=== PATIENT | female | born 1980 | race Caucasian/White ===

== ENCOUNTER 2024-05-23 16:37 | Emergency (ER) | payer BC, SELFPAY ==
[2024-05-23 16:50] VITALS: BP 119/82; PULSE 83; RESP 18; TEMP 36.9; O2SAT 97; BMI 25.2
--- NOTE | 2024-05-23 16:51 | ED_ITS ---
HPI - General Adult General Chief complaint: Anxiety Stated complaint: Anxiety, heart palpitations Time Seen by Provider: 05/23/24 18:46 History of Present Illness ED Provider: Jd James MD HPI narrative: [age] female who reports underlying anxiety and ADHD not formally diagnosed no medications. She does not have a primary doctor she has been given an appointment for November for 1st PCP appointment. She is reporting and coming in mainly for worsening episodes of mid sleep waking with rapid palpitations and anxiety feeling that lasts 30 minutes to 3 hours. 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 She also drinks heavily especially during the winter season sometimes 6 beers a day but often times 1-2 beers per day. No other drug use Related Data Previous Rx's ?Medication ?Instructions ?Recorded hydroxyzine HCl 25 mg tablet 50 mg (2 x 25 mg) PO Q4H PRN 05/23/24 itching #14 tabs Allergies Allergy/AdvReac Type Severity Reaction Status Date / Time Penicillins [PCN] Allergy Anaphylaxis Verified 05/23/24 16:51 NSAIDS (Non-Steroidal AdvReac Gastrointestinal Verified 05/23/24 16:51 Anti-Inflamma Upset PMFSH Social History Social History Advance Directives: No Advance Directives Information Provided: No Physical Exam ED Vital Signs: Vital Signs - 24 hr 05/23/24 16:50 05/23/24 18:46 05/23/24 21:09 Temperature 98.5 F 98.8 F 98.7 F Pulse Rate 83 72 73 Respiratory Rate 18 16 16 Blood Pressure 119/82 119/61 112/70 Pulse Oximetry 97 99 97 Oxygen Delivery Method Room Air Room Air Room Air BMI result Body Mass Index 25.2 Const Other: EXAM: Gen: Alert, awake, well appearing, well hydrated. Head: Atraumatic Eyes: Anicteric, Normal conjunctiva. ENT: Moist mucosa, no pallor. ? Neck: Supple. Respiratory: Breathing comfortably, No distress.Clear to auscultation bilaterally, symmetric chest expansion, No wheeze, rales, ronchi. Cardiovascular: Regular rate and rhythm. No murmurs or rub. Well perfused periphery, warm extremities. No edema. ? Abdominal: Soft, no objective distension. No palpable masses or obvious organomegaly. No focal tenderness, no guarding, no rebound tenderness or other peritoneal findings. : No flank tenderness. Neuro: Alert. Gross movement of all extremities intact. ? Vital signs: See flowsheet Course Course Course Narrative: This is a Rapid Medical Examination (RME) performed by Fatemeh Vilchis PA-C in triage. Full HPI, ROS, assessment and treatment plan per primary provider in the Main ED. 05/23/24 1652 MARYLOU Connor Hx: 44 yo female hx of anxiety/ panic attacks, here for eval of sternal chest pressure/ palpitations. Reports episode 2 days ago where she was woken up from sleep with chest pressure, sweating. I attributed this to anxiety however this is continued over the last 2 days. She is not currently on anything for anxiety. Used to be on medication for this. admits to increased stressors. drinks 1-6 beers daily. PE/vitals: well-appearing Plan: labs, ekg Medications Administered Discontinued Medications Generic Name Dose Route Start Last Admin Trade Name Freq PRN Reason Stop Dose Admin Hydroxyzine HCl 50 mg 05/23/24 18:52 05/23/24 19:25 Hydroxyzine Hcl 50 Mg Tablet PO 05/23/24 18:53 50 mg ONCE ONE Administration Thiamine HCl 100 mg 05/23/24 18:52 05/23/24 19:25 Thiamine Hcl 100 Mg Tablet PO 05/23/24 18:53 100 mg ONCE ONE Administration Medical Decision Making Medical Decision Making [facility] Narrative: 44-year-old female with daily drinking, anxiety, with nighttime waking and palpitations that self-resolved. Awake alert oriented looks well. Reassuring lab work no thyroid disorder electrolyte derangement. Looks euvolemic. No drugs no withdrawal syndrome or acute drug toxidrome here. Reassuring ECG normal sinus rhythm no ischemic changes. Atarax thiamine counseled on sleep hygiene Lab Data 05/23/24 17:06 05/23/24 17:06 Labs: Lab Results 05/23/24 Range/Units 17:06 WBC 7.1 (4.8-10.8) X10*3/uL RBC 4.30 (4.20-5.50) X10*6/uL Hgb 13.2 (12.0-16.0) g/dl Hct 38.6 (37.0-47.0) % MCV 89.8 (80.0-98.0) fL MCH 30.7 (27.0-33.0) pg MCHC 34.2 (31.0-35.0) g/dl RDW 12.3 (11.0-16.0) % Plt Count 289 (160-400) X10*3/uL MPV 8.7 L (9.4-12.3) fL Immature Gran % (Auto) 0.3 (0.0-0.4) % Neut % (Auto) 75.3 H (45-73) % Lymph % (Auto) 14.9 L (20-40) % [place] % (Auto) 6.5 (2-11) % Eos % (Auto) 2.3 (0-4) % Baso % (Auto) 0.7 (0-2) % Lymph # (Auto) 1.1 L (1.2-4.9) X10*3/uL [place] # (Auto) 0.5 (0.1-1.2) X10*3/uL Eos # (Auto) 0.2 (0.0-0.4) X10*3/uL Baso # (Auto) 0.1 (0.0-0.2) X10*3/uL Abs Immat Gran (auto) 0.02 (0.00-0.03) X10*3/uL Absolute Neuts (auto) 5.4 (2.0-8.3) x10*3/uL Absolute Nucleated RBC 0.000 (0.0-0.012) X10*3/uL Nucleated RBC % (auto) 0.0 (0.0-0.2) /100WBC Sodium 139 (135-145) mmol/L Potassium 3.7 (3.3-5.1) mmol/L Chloride 105 (96-108) mmol/L Carbon Dioxide 27 (22-29) mmol/L Anion Gap 11 L (12-20) BUN 8 L (9-16) mg/dL Creatinine 0.77 (0.5-1.4) mg/dL Estim Creat Clear Calc 86.4 Estimated GFR > 60 Random Glucose 91 (60-115) mg/dL Calcium 9.0 (8.4-10.2) mg/dL Magnesium 2.0 (1.6-2.6) mg/dL Total Bilirubin 0.3 (0.0-1.0) mg/dL AST 20 (5-31) U/L ALT 21 (0-31) U/L Alkaline Phosphatase 63 (39-117) U/L Troponin I High Sens < 2.7 (<3.5-17.0) ng/L Total Protein 7.2 (6.5-8.0) g/dL Albumin 4.1 (3.5-5.0) g/dL TSH 2.15 (0.32-4.0) uIU/mL Ethyl Alcohol < 10 mg/dL Discharge Plan Discharge Clinical Impression: Acute anxiety, Panic disorder Patient Disposition: Home, Self-Care Instructions: Panic Disorder (ED), Anxiety (ED) Additional Instructions: _ DISCHARGE DIAGNOSES: Anxiety likely panic disorder HISTORY OF PRESENTATION: Anxiety poor sleep EMERGENCY DEPARTMENT COURSE,TESTS, TREATMENTS: While in the ED today lab work was reassuring DISCHARGE MEDICATIONS: ?As needed Atarax FOLLOW-UP: ?Call your primary or general physician soon as possible to discuss your symptoms, your ED visit and to discuss follow up plans Call to try to expedite your follow up with your PCP INSTRUCTIONS ?& RETURN PRECAUTIONS: If any symptoms change first call your primary physician, if it is after-hours your primary doctors office should have a provider department store salesperson you can speak with. If the symptoms are severe or very concerning to you then call 911 or return to the ED. Jd James MD Emergency Physician [facility] Prescriptions: New hydroxyzine HCl 25 mg tablet 50 mg PO Q4H PRN (Reason: itching) Qty: 14 0RF Interventions: ED Discharge Assessment Last Done: 05/23/24 21:09 Print Language: Irish
--- NOTE | 2024-05-23 16:53 | ECG_ITS ---
Test Reason : CHEST PRESSURE Blood Pressure : */* mmHG Vent. Rate : 72 BPM Atrial Rate : 72 BPM P-R Int : 158 ms QRS Dur : 72 ms QT Int : 376 ms P-R-T Axes : 13 35 45 degrees QTcB Int : 411 ms Normal sinus rhythm Low voltage QRS Borderline ECG No previous ECGs available Referred By: Roselyn Vilchis Electronically Signed By: JOSE BRADEN MD
[2024-05-23 17:13] LABS: Basophils Absolute Auto 0.1 X10*3/uL (0.0-0.2); Basophils Percent Auto 0.7 % (0-2); Eosinophils Absolute Auto 0.2 X10*3/uL (0.0-0.4); Eosinophils Percent Auto 2.3 % (0-4); Hematocrit 38.6 % (37.0-47.0); Hemoglobin 13.2 g/dl (12.0-16.0); Imm Gran Abs Auto 0.02 X10*3/uL (0.00-0.03); Imm Gran Pct Auto 0.3 % (0.0-0.4); Lymphocytes Absolute Auto 1.1 X10*3/uL (1.2-4.9); Lymphocytes Percent Auto 14.9 % (20-40); MANUAL DIFF FLAG NO; Mean Corpuscular HGB Conc 34.2 g/dl (31.0-35.0); Mean Corpuscular Hemoglobin 30.7 pg (27.0-33.0); Mean Corpuscular Volume 89.8 fL (80.0-98.0); Mean Platelet Volume 8.7 fL (9.4-12.3); Monocytes Absolute Auto 0.5 X10*3/uL (0.1-1.2); Monocytes Percent Auto 6.5 % (2-11); Neutrophils Absolute Auto 5.4 x10*3/uL (2.0-8.3); Neutrophils Percent Auto 75.3 % (45-73); Platelet Count 289 X10*3/uL (160-400); Red Cell Distribution Width 12.3 % (11.0-16.0); White Blood Count 7.1 X10*3/uL (4.8-10.8)
[2024-05-23 17:41] LABS: Troponin-I High Sensitivity < 2.7 ng/L (<3.5-17.0)
[2024-05-23 17:51] LABS: Alanine Aminotransferase 21 U/L (0-31); Albumin Level 4.1 g/dL (3.5-5.0); Anion Gap 11 (12-20); Aspartate Amino Transferase 20 U/L (5-31); Bilirubin Total 0.3 mg/dL (0.0-1.0); Blood Urea Nitrogen 8 mg/dL (9-16); Carbon Dioxide 27 mmol/L (22-29); Chloride 105 mmol/L (96-108); Creatinine Clr Calc Pharmacy 86.4; Estimated Glomerular Filt Rate > 60; Glucose Random 91 mg/dL (60-115); Potassium 3.7 mmol/L (3.3-5.1); Sodium 139 mmol/L (135-145); Total Protein 7.2 g/dL (6.5-8.0)
[2024-05-23 18:21] LABS: Ethanol < 10 mg/dL
[2024-05-23 18:41] LABS: Alkaline Phosphatase 63 U/L (39-117)
[2024-05-23 18:46] VITALS: BP 119/61; PULSE 72; RESP 16; TEMP 37.1; O2SAT 99
[2024-05-23] MEDS: Thiamine HCL 100 MG TABLET PO (19:25)
[2024-05-23] MEDS: hydrOXYzine HCL 50 MG TABLET PO (19:25)
[2024-05-23 20:20] LABS: TSH reflex Free T4 2.15 uIU/mL (0.32-4.0)
[2024-05-23 21:09] VITALS: BP 112/70; PULSE 73; RESP 16; TEMP 37.1; O2SAT 97
== END 2024-05-23 21:09 | disposition home or self-care (01) ==
PROVIDERS: Physician Assistant Medical; Emergency Provider Emergency Medicine
DX: F41.1 Generalized anxiety disorder (principal); F41.0 Panic disorder [episodic paroxysmal anxiety]; R00.2 Palpitations; R94.31 Abnormal electrocardiogram [ECG] [EKG]; Z51.81 Encounter for therapeutic drug level monitoring; Z79.899 Other long term (current) drug therapy
CPT/HCPCS: 36415; 80053; 80307; 83735; 84443; 84484; 85025; 93005; 99283; 99285

== ENCOUNTER → 2024-05-23 16:53 | Outpatient (BNV) | payer BC, SELFPAY | PROVIDERS: Emergency Provider Emergency Medicine; Visit Provider Internal Medicine Cardiovascular Disease | DX: R07.89 Other chest pain (principal) | CPT/HCPCS: 93010 ==

== ENCOUNTER 2024-08-03 15:17 | Emergency (ER) | payer BC, SELFPAY ==
--- NOTE | ~2024-08-03 | XR_ITS ---
CLINICAL HISTORY: PAIN Radiographs of the left shoulder, 4 views Comparison: None available Findings: No fracture or dislocation. Normal acromiohumeral interval. No degenerative change. Bone mineralization is normal. No soft tissue swelling. Impression: Normal study. This document has been electronically signed by: Melissa Montoya MD on 08/03/2024 16:42:47
--- NOTE | 2024-08-03 15:19 | ECG_ITS ---
Test Reason : cp Blood Pressure : */* mmHG Vent. Rate : 70 BPM Atrial Rate : 70 BPM P-R Int : 166 ms QRS Dur : 66 ms QT Int : 392 ms P-R-T Axes : 42 45 46 degrees QTcB Int : 423 ms Normal sinus rhythm Normal ECG When compared with ECG of 23-May-2024 17:01, No significant change was found Referred By: Roselyn Vilchis Electronically Signed By: JOSE BRADEN MD
[2024-08-03 15:23] VITALS: BP 142/66; PULSE 77; RESP 16; TEMP 36.5; O2SAT 97; BMI 25.8
--- NOTE | 2024-08-03 15:24 | ED.GENADULT ---
HPI - General Adult General Chief complaint: Extremity Injury, Upper Stated complaint: chest & shoulder & arm pain goes numb when sitting Time Seen by Provider: 08/03/24 18:18 Source: patient Limitations: no limitations History of Present Illness ED Provider: Milla Rodrigues PA-C HPI narrative: 44-year-old female presents with left shoulder pain x3 days. Patient states she has a discomfort over left upper chest, anterior left shoulder, upper back and left lateral neck. The pain radiates down the left upper extremity with paresthesias at times. Pain worse with movement and activity. Patient states she does perform a great deal of physical and repetitive activity at work. Related Data Previous Rx's ?Medication ?Instructions ?Recorded hydroxyzine HCl 25 mg tablet 50 mg (2 x 25 mg) PO Q4H PRN 05/23/24 itching #14 tabs methocarbamol 750 mg tablet 750 mg PO Q8H #15 tabs 08/03/24 methylprednisolone 4 mg tablets in 4 mg PO QAM #21 ea 08/03/24 a dose pack (Medrol (Igor)) Allergies Allergy/AdvReac Type Severity Reaction Status Date / Time Penicillins (PCN) Allergy Anaphylaxis Verified 08/03/24 15:25 NSAIDS (Non-Steroidal AdvReac Gastrointestinal Verified 08/03/24 15:25 Anti-Inflamma Upset Review of Systems Review of Systems: Yes all other systems are reviewed and are negative Constitutional: Constitutional: Denies fatigue, Denies fever(s) and Denies headache(s) ENT: Denies dizziness, Denies headache(s) and Reports neck pain Cardiovascular: Cardiovascular: Reports chest pain and Denies dyspnea Respiratory: Respiratory: Denies dyspnea Gastrointestinal: Gastrointestinal: Denies abdominal pain, Denies nausea and Denies vomiting Musculoskeletal: Musculoskeletal: Reports arthralgias, Denies joint swelling, Reports neck pain, Denies numbness, Reports radiating pain into limb and Reports tingling Neurologic: Denies dizziness, Denies headache(s), Denies numbness and Reports tingling Endocrine: Endocrine: Denies fatigue PMF Past Medical History Attestation statement: The following information was validated with the patient. Social History Social History Alcohol intake: current Alcohol intake frequency: a few times a week Alcohol type: beer Smoked in Last 30 Days: No Use of substances other than those prescribed or required for medical reasons: Yes Substance Use Type: Marijuana Advance Directives: No Advance Directives Information Provided: Yes Do you have a plan to hurt others: No Plan Patient : No Physical Exam ED Vital Signs: Vital Signs - 24 hr 08/03/24 15:23 08/03/24 18:00 Temperature 97.7 F 98.1 F Pulse Rate 77 80 Respiratory Rate 16 19 Blood Pressure 142/66 H 115/69 Pulse Oximetry 97 100 Oxygen Delivery Method Room Air Room Air BMI result Body Mass Index 25.8 Const Other: Alert well-appearing Orientation/consciousness: patient oriented x3 Chest Other: Some degree of tenderness over left anterior upper chest with palpation Resp Effort & Inspection: normal respiratory effort Cardio Other: Normal peripheral perfusion Skin Other: Warm dry no rash Neuro General: patient oriented x3, gait normal, no focal motor deficits and CN's II-XI intact bilaterally Extrem Other: Strength 5/5 bilateral upper extremities, pain elicited with movement of left upper extremity. Focal pain and bicipital groove on the left Psych Other: Cooperative Course Course Course Narrative: 08/03/24 1524 MARYLOU Connor This is a Rapid Medical Examination (RME) performed by Fatemeh Vilchis PA-C in triage. Full HPI, ROS, assessment and treatment plan per primary provider in the Main ED. Hx: 44 yo F here w/ L shoulder pain, now radiating to chest. worse w/ sitting down which induces muscle spasms . reports getting a massage a few days ago. no neck manipulations. no trauma/falls. Plan: labs, ekg, shoulder xr Medical Decision Making Medical Decision Making MDM Narrative: 44-year-old female presents with left shoulder pain x3 days. Patient states she has a discomfort over left upper chest, anterior left shoulder, upper back and left lateral neck. The pain radiates down the left upper extremity with paresthesias at times. Pain worse with movement and activity. Patient states she does perform a great deal of physical and repetitive activity at work. No relevant chronic issues History: Per patient I have considered the following differential diagnoses: Cervical radiculopathy, VAD, ACS, dissection, musculoskeletal strain Plan: ACS was considered, the patient does have some chest wall pain, she has no known risk factors for coronary artery disease, her heart score is 0, screening labs including cardiac enzymes EKG were obtained. The patient is actually having cervical radiculopathy, she can not have NSAIDs, we will treat with a steroid taper and muscle relaxant. Thought about VAD, the patient does perform a great deal of physical activity, however there was no heavy lifting event that preceded her discomfort, she is also neurologically intact, does not have a headache or visual changes. Thought about dissection given both chest and back pain, however she is not overtly hypertensive, she is neurovascularly intact. I have independently reviewed the following tests: Labs: No leukocytosis, not anemic, not , troponin is negative EKG: Normal sinus rhythm, rate of 70, no ischemic changes no ectopy X-ray left shoulder:Findings: No fracture or dislocation. Normal acromiohumeral interval. No degenerative change. Bone mineralization is normal. No soft tissue swelling. Impression: Normal study. Lab Data 08/03/24 15:33 08/03/24 15:33 Labs: Lab Results 08/03/24 Range/Units 15:33 WBC 5.6 (4.8-10.8) X10*3/uL RBC 4.06 L (4.20-5.50) X10*6/uL Hgb 12.6 (12.0-16.0) g/dl Hct 36.2 L (37.0-47.0) % MCV 89.2 (80.0-98.0) fL MCH 31.0 (27.0-33.0) pg MCHC 34.8 (31.0-35.0) g/dl RDW 12.7 (11.0-16.0) % Plt Count 270 (160-400) X10*3/uL MPV 8.8 L (9.4-12.3) fL Immature Gran % (Auto) 0.2 (0.0-0.4) % Neut % (Auto) 66.3 (45-73) % Lymph % (Auto) 23.6 (20-40) % [place] % (Auto) 7.4 (2-11) % Eos % (Auto) 1.6 (0-4) % Baso % (Auto) 0.9 (0-2) % Lymph # (Auto) 1.3 (1.2-4.9) X10*3/uL [place] # (Auto) 0.4 (0.1-1.2) X10*3/uL Eos # (Auto) 0.1 (0.0-0.4) X10*3/uL Baso # (Auto) 0.1 (0.0-0.2) X10*3/uL Abs Immat Gran (auto) 0.01 (0.00-0.03) X10*3/uL Absolute Neuts (auto) 3.7 (2.0-8.3) x10*3/uL Absolute Nucleated RBC 0.000 (0.0-0.012) X10*3/uL Nucleated RBC % (auto) 0.0 (0.0-0.2) /100WBC Sodium 138 (135-145) mmol/L Potassium 3.9 (3.3-5.1) mmol/L Chloride 108 (96-108) mmol/L Carbon Dioxide 22 (22-29) mmol/L Anion Gap 12 (12-20) BUN 13 (9-16) mg/dL Creatinine 0.86 (0.5-1.4) mg/dL Estim Creat Clear Calc 84.2 Estimated GFR > 60 Random Glucose 93 (60-115) mg/dL Calcium 8.3 L D (8.4-10.2) mg/dL Magnesium 2.1 (1.6-2.6) mg/dL Total Bilirubin 0.4 (0.0-1.0) mg/dL AST 21 (5-31) U/L ALT 21 (0-31) U/L Alkaline Phosphatase 59 (39-117) U/L Troponin I High Sens < 2.7 (<3.5-17.0) ng/L Total Protein 6.9 (6.5-8.0) g/dL Albumin 4.2 (3.5-5.0) g/dL Discharge Plan Discharge Clinical Impression: Left cervical radiculopathy Patient Disposition: Home, Self-Care Instructions: Cervical Radiculopathy (ED) Additional Instructions: All of your screening labs including a cardiac enzymes were normal, there were no concerning changes on your EKG, the x-ray of the left shoulder was negative. You are being treated for inflammation of 1 of the nerve roots in the neck that is causing pain in the arm. See home care instructions. Take the Medrol Dosepak as directed, this is an anti-inflammatory, take it with food in the morning. Use the methocarbamol as needed for further pain, this is a muscle relaxant. This medication will cause drowsiness do not drive or operate machinery while taking the medication. I am providing with a contact for our orthopedic service if your symptoms continue. You can call to make an appointment. Follow up with primary care as needed. Prescriptions: New methocarbamol 750 mg tablet 750 mg PO Q8H Qty: 15 0RF methylprednisolone [Medrol (Igor)] 4 mg tablets,dose pack 4 mg PO QAM Qty: 21 0RF Rx Instructions: Take per package instruction No Action hydroxyzine HCl 25 mg tablet 50 mg PO Q4H PRN (Reason: itching) Qty: 14 0RF Referrals: Edwin Borrero MD [Physician, Orthopedics] Clinical Impression: Left cervical radiculopathy Stand Alone Forms: Work/School Release Print Language: St Helenian
[2024-08-03 15:37] LABS: MANUAL DIFF FLAG NO
[2024-08-03 15:40] LABS: Basophils Absolute Auto 0.1 X10*3/uL (0.0-0.2); Basophils Percent Auto 0.9 % (0-2); Eosinophils Absolute Auto 0.1 X10*3/uL (0.0-0.4); Eosinophils Percent Auto 1.6 % (0-4); Hematocrit 36.2 % (37.0-47.0); Hemoglobin 12.6 g/dl (12.0-16.0); Imm Gran Abs Auto 0.01 X10*3/uL (0.00-0.03); Imm Gran Pct Auto 0.2 % (0.0-0.4); Lymphocytes Absolute Auto 1.3 X10*3/uL (1.2-4.9); Lymphocytes Percent Auto 23.6 % (20-40); Mean Corpuscular HGB Conc 34.8 g/dl (31.0-35.0); Mean Corpuscular Volume 89.2 fL (80.0-98.0); Mean Platelet Volume 8.8 fL (9.4-12.3); Monocytes Absolute Auto 0.4 X10*3/uL (0.1-1.2); Monocytes Percent Auto 7.4 % (2-11); Neutrophils Absolute Auto 3.7 x10*3/uL (2.0-8.3); Neutrophils Percent Auto 66.3 % (45-73); Platelet Count 270 X10*3/uL (160-400); Red Blood Count 4.06 X10*6/uL (4.20-5.50); Red Cell Distribution Width 12.7 % (11.0-16.0); White Blood Count 5.6 X10*3/uL (4.8-10.8)
[2024-08-03 16:03] LABS: Alanine Aminotransferase 21 U/L (0-31); Albumin Level 4.2 g/dL (3.5-5.0); Alkaline Phosphatase 59 U/L (39-117); Anion Gap 12 (12-20); Aspartate Amino Transferase 21 U/L (5-31); Bilirubin Total 0.4 mg/dL (0.0-1.0); Blood Urea Nitrogen 13 mg/dL (9-16); Calcium 8.3 mg/dL (8.4-10.2); Carbon Dioxide 22 mmol/L (22-29); Chloride 108 mmol/L (96-108); Creatinine Clr Calc Pharmacy 84.2; Estimated Glomerular Filt Rate > 60; Glucose Random 93 mg/dL (60-115); Magnesium 2.1 mg/dL (1.6-2.6); Potassium 3.9 mmol/L (3.3-5.1); Sodium 138 mmol/L (135-145); Total Protein 6.9 g/dL (6.5-8.0)
[2024-08-03 16:10] LABS: Troponin-I High Sensitivity < 2.7 ng/L (<3.5-17.0)
[2024-08-03 18:00] VITALS: BP 115/69; PULSE 80; RESP 19; TEMP 36.7; O2SAT 100
[2024-08-03 20:38] VITALS: BP 117/79; PULSE 85; RESP 16; TEMP 36.7; O2SAT 100
== END 2024-08-03 20:40 | disposition home or self-care (01) ==
PROVIDERS: Physician Assistant Medical; Emergency Provider Emergency Medicine
DX: M54.12 Radiculopathy, cervical region (principal); R07.9 Chest pain, unspecified; M54.2 Cervicalgia; M25.512 Pain in left shoulder
CPT/HCPCS: 36415; 73030; 80053; 83735; 84484; 85025; 93005; 99283; 99284

== ENCOUNTER → 2024-08-03 15:19 | Outpatient (BNV) | payer BC, SELFPAY | PROVIDERS: Emergency Provider Emergency Medicine; Visit Provider Internal Medicine Cardiovascular Disease | DX: R07.9 Chest pain, unspecified (principal) | CPT/HCPCS: 93010 ==

== ENCOUNTER → 2024-08-03 15:25 | Outpatient (BNV) | payer BC, SELFPAY | PROVIDERS: Visit Provider Radiology Diagnostic Radiology | DX: M25.512 Pain in left shoulder (principal) | CPT/HCPCS: 73030 ==

== ENCOUNTER 2024-08-11 08:05 | Outpatient (AMB) | payer OTHER, SELFPAY ==
[2024-08-11 08:07] VITALS: BP 106/82; PULSE 75; TEMP 36.5; O2SAT 99; BMI 25.5
--- NOTE | 2024-08-11 08:07 | AM.OFFWIN_ITS ---
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 Reports Pain radiates to the left Shoulder and feeling numbness to the fingers. Denies injury or trauma to the neck. 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 This is claim - patient does not have a PCP, waiting for an appointment in December. [facility] Medical History (Updated 08/11/24 @ 08:31 by Angeline Dang NP) Cervicalgia Social History Alcohol intake: current Alcohol intake frequency: a few times a week Alcohol type: beer Substance Use Type: Marijuana Review of Systems Const All systems reviewed & are unremarkable except as noted in HPI and below Physical Exam Vital Signs: Last Vital Signs Temp 97.7 F 08/11/24 08:07 Pulse 75 08/11/24 08:07 BP 106/82 08/11/24 08:07 Pulse Ox 99 08/11/24 08:07 Oxygen Delivery Method Room Air 08/11/24 08:07 BMI result Body Mass Index 25.5 Const General: no acute distress; No comfortable Orientation/consciousness: patient oriented x3 Neck Other: Limited ROM due to pain Neck: Yes no lymphadenopathy and Yes trachea midline Back/Spine/Pelvis Back: back tenderness Cervical Spine: pain with cervical ROM, cervical spasm and Cervical spine tenderness Neuro General: patient oriented x3, gait normal and moves all extremities Motor exam (neuro): 5/5 motor strength present throughout Extrem Left upper extremity: shoulder/upper arm Details: tenderness Location: of the scapula and over the deltoid bursa and abnormal ROM Details: pain with active ROM and pain with passive ROM; no crepitus Assessment & Plan Assessment & Plan (1) Cervicalgia: Code(s): M54.2 - Cervicalgia Plan: Ordered Neck Xrays Refilled Muscle relaxants for few additional days. ice/Hot NSAIDs and Acetaminophen Rest, gave work note for 3 days. Ordered PT Orders: Orders PT Evaluation and Treatment Today M54.2 - Cervicalgia XR cervical spine 3V Today M54.2 - Cervicalgia Medications: Changed From methocarbamol 750 mg PO .twice M54.2 - Cervicalgia To methocarbamol 750 mg PO BID 20 tabs 0RF 10 days M54.2 - Cervicalgia Discontinued hydroxyzine HCl Discontinued Reason: Patient Completed Course 50 mg (2 x 25 mg) PO Q4H PRN 14 tabs 0RF itching Coding Level of Care Code New Pt Level 4 (47136) Diagnoses Cervicalgia M54.2 Time Spent (min) 20
--- OUTSIDE RECORDS SUMMARY | 2024-08-11 08:08 | XMS_ITS | Data Portability ---
Author Organization [email or web address] [id number] Address [address] [place] [address] Assessment No assessment recorded. Plan of Treatment Reminders Order Date Submit Date Provider Last Modified By Organization Details Last Modified Time Details Appointments None record ed. Lab None record ed. Referral None record ed. Procedures None record ed. Surgeries None record ed. Imaging None record ed. Medication Orders None record ed. Patient TargetsNo targets recorded. Patient Instructions Encounter Date Encounter Id Patient Instructions Last Modified By Organization Details Last Modified Time 03/23/2022 [id number] This physical does not replace the annual physical to be performed by your PCP. There may be additional screening tests that they will perform that we do not in the urgent care setting. Failure to follow up as recommended may result in significant adverse health consequences. If your symptoms worsen or you develop new symptoms that concern you, go to the emergency department for further evaluation. [email or web address] Not available 03/23/2022 14:32:49 Reason for Referral None Reported. Problems No Known Problems Procedures Surgical History Date Name Laterality Status Provider Name and Address Organization Details Recorded Time 03/23/19 23 OC - Venipuncture Template completed CAROLYN RICHTER PA - [facility] 03/23/2022 13:10:43 03/23/19 23 OC- Physical completed Verical PA - [facility] 03/23/2022 13:10:34 Imaging Results None recorded. Procedure Notes None recorded. Medical Equipment None Reported. Vitals None Recorded Social History None recorded. Functional Status None recorded. Mental Status None recorded. Family History Nothing Reported. Medical History No medical history recorded. Gynecological HistoryNo gynecological history recorded. Obstetrics History GPAL:G 0 P 0 0 0 0 Past Encounters Encounter ID Performer Location Encounter Start Date Encounter Closed Date Diagnosis/Indication Diagnosis SNOMED-CT Code Diagnosis ICD10 Code Diagnosis [place] [id number] [place] [id number] [address] 03/23/2022 12:07:06 03/23/2022 14:36:58 History and physical examination, occupation 034928387 Z02.1 History an d physical examination, pre-employment [id number] Z02.1 Health Concerns Section Related Observation LastModified by Organization Detai ls LastModified Time None Recorded Concern Status LastModified by Organization Details LastModified Time None Recorded Advance Directives Directive None Recorded Payers Insurance Date Sequence Insurance Name Policy Number Policy Gracia Covered Member ID Gracia Member ID Guarantor Name 03/23/2022 OC-ESCREEN Jania Sullivan [id number] Jania Sullivan Notes Date Note Type Note Provider Name a nd Address Organization Details Recorded Time 03/23/2022 text/html physical Zana Stewart NP [address] [place], [address], [place] - [facility] 03/23/2022 14:39:55 OBGyn Episode No OBEpisode recorded.
--- OUTSIDE RECORDS SUMMARY | 2024-08-11 08:08 | XMS_ITS | Clinical Summary ---
Author Organization [address] Address [address] [place], [place] Phone Care Team Providers Care Manager Technical Support Name Role Phone Darin Bolivar MD Primary Care Provider Social History Tobacco Use Types Packs/Day Years Used Date Smoking Tobacco: Never Assessed Comments Unknown Sex and Gender Information Value Date Recorded Sex Assigned at Not on file Legal Sex Female 1:48 PM EDT Gender Identity Not on file Sexual Orientation Not on file Plan of Treatment Upcoming Encounters Date Type Department Care Team (Late st Contact Info) Description 12/18/2024 11:30 AM EST Office Visit Adult Medicine [address] [phone] Verena Morales PA [address] [place] [address] Health Maintenance Due Date Last Done Comments Breast Cancer Screening 1979 DTaP,Tdap,and Td Vaccines (1 - Tdap) 1998 Hepatitis B Vaccines (1 of 3 - 19+ 3-dose series) 1998 Cervical Cancer Screening: P ap Smear 2000 COVID-19 Vaccine (2023-2 5 season) 2023 Colorectal Cancer Screening: Colonoscopy 08/06/2024 Depression Screening 08/06/2024 HIV Screening 08/06/2024 Hepatitis C Screening 08/06/2024 Social Influencers of Health Screening 08/06/2024 Influenza Vaccine (#1) 2024 HIB Vaccines Aged Out No longer eligi ble based on patient's age to complete this topic HPV Vaccines Aged Out No longer eligi ble based on patient's age to complete this topic Hepatitis A Vaccines Aged Out No long er eligible based on patient's age to complete this topic IPV Vaccines Aged Out No longer eligi ble based on patient's age to complete this topic MMR Vaccines Aged Out No longer eligi ble based on patient's age to complete this topic Meningococcal ACWY Vaccine Aged Out N o longer eligible based on patient's age to complete this topic Meningococcal B Vaccine Aged Out No l onger eligible based on patient's age to complete this topic Pneumococcal Vaccine: Pediat rics (0 to 5 Years) and At-Risk Patients (6 to 64 Years) Aged Out No longer eligible b ased on patient's age to complete this topic RSV Immunization Patients Un deshaun 20 months Aged Out No longer eligible b ased on patient's age to complete this topic Varicella Vaccines Aged Out No longer eligible based on patient's age to complete this topic Insurance [address] [address] [place] [address] Care Teams Manager Technical Support Relationship Specialty Start Date End Date Darin Bolivar MD [address] [place] [address] PCP - General Internal Medicine 08/05/24
== END 2024-08-11 09:05 | disposition home or self-care (01) ==
PROVIDERS: Visit Provider Nurse Practitioner Family
DX: M54.2 Cervicalgia (principal)

== ENCOUNTER 2024-08-11 08:05 | Outpatient (REF) | payer OTHER, BC, SELFPAY ==
--- NOTE | ~2024-08-11 | XR_ITS ---
EXAMINATION: XR CERVICAL SPINE CLINICAL INFORMATION: M54.2 - Cervicalgia. Left-sided neck pain for 10 days COMPARISON: None available. TECHNIQUE: 2 views of the cervical spine were obtained. FINDINGS: There is mild straightening of cervical lordosis. The vertebral heights, alignment and disc heights are normal. No visible acute fracture, dislocation or subluxation seen. There is mild posterior spondylosis at the C5-6 disc level. No lytic or sclerotic process seen. The craniovertebral junction and the C1-C2 alignment is normal. The prevertebral and paravertebral soft tissues are normal. XR/XR cervical spine 2V IMPRESSION: Straightening of cervical lordosis spasm versus positional. There is posterior C5-6 cervical spondylosis. Electronically signed by: Nakul Anderson MD 08/11/2024 09:59 AM EDT
== END 2024-08-11 08:06 | disposition home or self-care (01) ==
LOC: HO.HMGCX 08:05
PROVIDERS: Visit Provider Nurse Practitioner Family
DX: M54.2 Cervicalgia (principal); M25.512 Pain in left shoulder; R20.2 Paresthesia of skin
CPT/HCPCS: 72040; 99202

== ENCOUNTER → 2024-08-11 09:33 | Outpatient (BNV) | payer OTHER, SELFPAY | PROVIDERS: Visit Provider Radiology Diagnostic Radiology | DX: M47.812 Spondylosis without myelopathy or radiculopathy, cervical region (principal) | CPT/HCPCS: 72040 ==

== ENCOUNTER 2024-11-28 08:18 | Outpatient (AMB) | payer OTHER, SELFPAY ==
[2024-11-28 08:28] VITALS: BMI 27.4
--- NOTE | 2024-11-28 08:28 | MHC.OFFVIS ---
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 Patient was seen and referred by [facility] 08/03/24. Patient reports she was overworked . She reports she took on the job of a few co-workers who were out of work for a few days and woke up suddenly with pain in her neck and left shoulder that she described as tightness and muscles spasms. She says she continued to work over the weekend due to her filling in for co-workers despite her shoulder feeling frozen and tight. Reports she had numbness and tingling that has resolved in the LUE. She is resting, icing, and heating to maintain her symptoms. Since this injury she says she has developed blurry vision and headaches. Most days she is having pain in her neck that radiates into her shoulder making them feel heavy. Patient trying to maintain her symptoms with pregablin, acetaminophen, Excedrin, and baclofen with mild relief. She says ED thought it may have been a heart attack because of the LUE symptoms. Allergies Penicillins (PCN) Allergy (Verified 11/28/24 08:30) Anaphylaxis gabapentin Adverse Reaction (Severe, Verified 11/28/24 08:30) Unknown NSAIDS (Non-Steroidal Anti-Inflamma Adverse Reaction (Verified 11/28/24 08:31) Gastrointestinal Upset Medication List - Last Reconciled 11/28/24 by Sissy Campo MD acetaminophen 1,000 mg PO Q6H PRN lcpptof-ucvunetzclfsa-pgudkdyj 250-250-65 mg (Excedrin Extra Strength) 2 tabs PO Q6H PRN baclofen 10 mg PO TID pregabalin 25 mg PO BID HPI Comments Details: Reviewed notes from ER 08/03. Presented with more left sided shoulder/neck pain. Essentially ruled out for acute cardiac. X-ray of left shoulder was normal. Prescribed but Medrol Dosepak. Patient presented to walk-in clinic 08/11, reported worker's comp case. 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 Points to posterior neck pain, midline. Last time she had numbness/tingling was 2 days ago to her hands, bilateral, mainly 4th and 5th digits. Right shoulder hurts mostly at night, depending on her sleeping positiong. Left shoulder is improved from onset. Still having blurry vision, which she was reinjured (after went back to work 10/21 but woke up 11/01 with more pain, but more on right side). Still having headaches, frontal, temporal, with feeling of numbness on temporal area. PT finished 10/27. Off work until 02/03/25. 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 Patient was appropriately conversant and oriented. Good historian. MSK: Inspection reveals appropriate head and neck positioning. Tender mildly upper trapezius, cervical paraspinals. Cervical ROM was full. Spurling's sign negative. Bilateral shoulder, elbow and wrist ROM WNL. No ligamentous laxity or crepitance. No increased effusion. No specific abnormalities or instability found on inspection and palpation of the spine and extremities. Strength is 5/5 in all muscle groups tested. No increased tone noted. Neurological: Neurologic examination of the upper and lower extremities was nonfocal with intact sensation, muscle stretch reflexes and without focal motor deficits . Castro?s negative bilaterally. Babinski was down going bilaterally. Clonus was negative. Gait is non-antalgic without loss of balance. Vital Signs: BMI result Body Mass Index 27.4 Results Reviewed Results Reviewed: Reviewed xray cspine with patient - loss of lordosis, but disc spaces preserved. Ordering Physician: Angeline Dang NP Date of Service: 08/11/24 Procedure(s): XR cervical spine 2V Accession Number(s): [id number] cc: Angeline Dang NP; Physician,None ~ EXAMINATION: XR CERVICAL SPINE CLINICAL INFORMATION: M54.2 - Cervicalgia. Left-sided neck pain for 10 days COMPARISON: None available. TECHNIQUE: 2 views of the cervical spine were obtained. FINDINGS: There is mild straightening of cervical lordosis. The vertebral heights, alignment and disc heights are normal. No visible acute fracture, dislocation or subluxation seen. There is mild posterior spondylosis at the C5-6 disc level. No lytic or sclerotic process seen. The craniovertebral junction and the C1-C2 alignment is normal. The prevertebral and paravertebral soft tissues are normal. XR/XR cervical spine 2V IMPRESSION: Straightening of cervical lordosis spasm versus positional. There is posterior C5-6 cervical spondylosis. Electronically signed by: Nakul Anderson MD 08/11/2024 09:59 AM EDT RP Ordering Physician: Roselyn Vilchis Date of Service: 08/03/24 Procedure(s): XR shoulder LT min 2V Accession Number(s): [id number] cc: Physician,None ; Roselyn Vilchis~ CLINICAL HISTORY: PAIN Radiographs of the left shoulder, 4 views Comparison: None available Findings: No fracture or dislocation. Normal acromiohumeral interval. No degenerative change. Bone mineralization is normal. No soft tissue swelling. Impression: Normal study. This document has been electronically signed by: Melissa Montoya MD on 08/03/2024 16:42:47 I reviewed records from the following: ER, walk-in clinic Assessment & Plan Assessment & Plan (1) Cervicalgia: Code(s): M54.2 - Cervicalgia Category: Medical (2) Myofascial pain: Code(s): M79.18 - Myalgia, other site Category: Medical (3) Numbness in both hands: Code(s): R20.0 - Anesthesia of skin Category: Medical (4) Right shoulder pain: Code(s): M25.511 - Pain in right shoulder Category: Medical Qualifiers: Chronicity: acute Qualified Code(s): M25.511 - Pain in right shoulder Plan Suspect neck and shoulder pain is from myofascial pain, particularly upper trapezius. No signs of radiculopathy or myelopathy. No signs of RTC injury. Shoulder pain is also from upper trapezius. On/off numbness on 4th-5th digits could be positional, affecting ulnar. 1. Trial trigger point injections, to be scheduled 2. EMG to rule out ulnar neuropathy 3. Right shoulder xray Assessment and plan discussed with patient, and patient was agreeable. All questions were answered thoroughly. Sissy Campo MD, HEATHER Board Certified, [place] Board [employer] Medicine and Rehabilitation (ABPMR) Board Certified, [place] Board of Electrodiagnostic Medicine (ABEM) Orders: Orders NE electromyogram (EMG) Today R20.0 - Anesthesia of skin NE nerve conduction velocity Today R20.0 - Anesthesia of skin XR shoulder RT min 2V Today M25.511 - Pain in right shoulder Coding Level of Care Code New Pt Level 4 (21559) Diagnoses Cervicalgia M54.2 Myofascial pain M79.18 Numbness in both hands R20.0 Acute pain of right shoulder M25.511 Chronicity: acute
--- OUTSIDE RECORDS SUMMARY | 2024-11-28 08:35 | XMS_ITS | Clinical Summary ---
Author Organization [facility] [address] [place] [address] Address [address] [facility] [place] [address] Phone Care Team Providers Care Scrubber Operator Name Role Phone Darin Bolivar MD Primary Care Provider Allergies Active Allergy Reactions Criticality Noted Date Comments Gabapentin Anxiety,Irritable,Pa lpita tions,Sweating 08/14/2024 Nsaids (Non-Steroidal Anti-Inflammatory Drug) Angioedema,Nausea And Vomiting,Other,Pain,Palpi tations,Shortness of breath High 08/14/2024 Penicillins Anaphylaxis,Hives,Itching High 5 Medications magnesium-rhuba rb-ashwagandha (Estroven-Ashwa gandha) 50-4-125 mg tablet 5 Active baclofen (LIORESAL) 10 mg tablet Take 1 tablet (10 mg total) by mouth 3 (three) times a day. 270 each 1 5 Active pregabalin (LYRICA) 25 mg capsule Take 1 capsule (25 mg total) by mouth 2 (two) times a day. Max Daily Amount: 50 mg 60 capsule 5 5 05/20/19 26 Active sertraline (ZOLOFT) 50 mg tablet 0.5 tablets (25 mg total). 09/04/11/05/19 25 Discontinu ed(Patient Discharge) pregabalin (LYRICA) 25 mg capsule Take 1 capsule (25 mg total) by mouth 1 (one) time each day. 11/05/19 25 Discontinu ed(Reorder ) pregabalin (LYRICA) 25 mg capsule Take 1 capsule (25 mg total) by mouth 1 (one) time each day. Max Daily Amount: 25 mg 90 capsule 1 11/21/19 25 Discontinu ed(Dose adjustment ) Active Problems Problem Noted Date Diagnosed Date Cervical radiculopathy 08/14/2024 Encounters Date Type Department Care Team Description 11/20/2024 11:00 AM EDT Office Visit Adult [address] [phone] Verena Morales PA Work related injury (Primary Dx); Cervical radiculopathy 11/04/2024 9:45 AM EDT Office Visit Adult [address] [phone] Darin Bolivar MD Cervical radiculopathy (Primary Dx) 10/27/2024 2:30 PM EDT Treatment Outpatient Rehabilitation [address] [phone] Ubaldo Jasmine, PELON Cervical radiculopathy (Primary Dx) 10/22/2024 11:30 AM EDT Treatment Outpatient [address] [phone] Beulah Sim, ADELITA Cervical radiculopathy (Primary Dx) 10/20/2024 12:30 PM EDT Treatment Outpatient [address] [phone] Beulah Sim, ADELITA Cervical radiculopathy (Primary Dx) 10/15/2024 11:30 AM EDT Treatment Outpatient [address] [phone] Beulah Sim, ADELITA Cervical radiculopathy (Primary Dx) 10/14/2024 10:00 AM EDT Office Visit [address] [phone] Verena Morales PA Cervical radiculopathy (Primary Dx) 10/10/2024 1:00 PM EDT Treatment Outpatient [address] [phone] Ubaldo Jasmine, PT Cervical radiculopathy (Primary Dx) 10/08/2024 1:30 PM EDT Treatment Outpatient [address] [phone] Rena Becerra, BIAS BINDING FOLDER Cervical radiculopathy (Primary Dx) 10/01/2024 11:00 AM EDT Treatment Outpatient [address] [phone] Beulah Sim, BIAS BINDING FOLDER Cervical radiculopathy (Primary Dx) 09/29/2024 10:30 AM EDT Treatment Outpatient [address] [phone] Beulah Sim, BIAS BINDING FOLDER Cervical radiculopathy (Primary Dx) 09/26/2024 10:00 AM EDT Treatment Outpatient [address] [phone] Everette Whitley, BIAS BINDING FOLDER Cervical radiculopathy (Primary Dx) 09/23/2024 10:00 AM EDT Treatment Outpatient [address] [phone] Ubaldo Jasmine, PT Cervical radiculopathy (Primary Dx) 09/22/2024 11:15 AM EDT Office Visit [address] [phone] Darin Bolivar MD Cervical radiculopathy (Primary Dx) 09/18/2024 2:30 PM EDT Treatment Outpatient Rehabilitation - [address] [phone] Beulah Sim, BIAS BINDING FOLDER Cervical radiculopathy (Primary Dx) 09/10/2024 12:30 PM EDT Evaluation Outpatient Rehabilitation [address] [phone] Ubaldo Jasmine, PT Cervical radiculopathy (Primary Dx) 08/29/2024 Telephone Adult Medicine [facility] - [address] [phone] Darin Bolivar MD from Last 3 Months Social History Tobacco Use Types Packs/Day Years Used Date Smoking Tobacco: Former Cigarettes Passive Smoke Exposure: Never Smokeless Tobacco: Never Tobacco Cessation:Counseling Given: Not Answered Housing Instability Answer Date Recorde d Are you worried that in the next 2 months you may not have stable housing? No 08/13/2024 Food Access & Nutrition Answer Date Rec orded Do you have access to a vari ety of food including fruits and vegetables? Yes 08/13/2024 Access to Healthcare Answer Date Record ed Within the last 3 months, ho w many times did you visit the emergency department for your medical care? 2 08/13/2024 Health Literacy Answer Date Recorded How often do you need to hav e someone help you when you read instructions, pamphlets, or other written material from your doctor or pharmacy? Never 08/13/2024 Caregiver: How often do you need to have someone help you when you read instructions, pamphlets, or other written material from your doctor or pharmacy? Not on file 08/13/2024 Financial Risk Answer Date Recorded How hard is it for you to pa y for the very basics like food, housing, medical care, and air conditioning / heating? Not very hard 08/13/2024 Transportation Answer Date Recorded Has the lack of transportati on kept you from meetings, work, or from getting things needed for daily living? Yes Has the lack of transportati on kept you from medical appointments or from getting medications? No 08/13/2024 Social Isolation Answer Date Recorded How often do you feel lonely or isolated from those around you? Sometimes 08/13/2024 Food Risk Answer Date Recorded Within the past 12 months we worried whether our food would run out before we got money to buy more. Never true 08/13/2024 Within the past 12 months th e food we bought just didn't last and we didn't have money to get more. Never true 08/13/2024 Dependent Care Answer Date Recorded Do you need help finding or paying for care for your loved ones. For example, early childhood coordinator or elderly care for an older adult? No 08/13/2024 Education Answer Date Recorded Do you think completing more education or training, like finishing a GED, going to college, or learning a trade, would be helpful for you? N/A 08/13/2024 Employment and Income Answer Date Recor ded During the last four weeks, have you been actively looking for work? No 08/13/2024 Living Situation Answer Date Recorded What is your living situation? Unrecognized valu e 08/13/2024 Comments No Sex and Gender Information Value Date Recorded Sex Assigned at Female 08/13/2024 2:47 PM EDT Legal Sex Female 1:48 PM EDT Gender Identity Female 08/13/2024 2:47 PM EDT Sexual Orientation Straight 08/13/2024 2: 47 PM EDT Obstetrics History Last Filed Vital Signs Vital Sign Reading Time Taken Comments Blood Pressure 104/70 11/20/2024 10:52 AM EDT Pulse 82 11/20/2024 10:52 AM EDT Temperature 36.8 C (98.3 F) 11/20/2024 10:52 AM EDT Respiratory Rate 14 11/20/2024 10:52 AM EDT Oxygen Saturation 97% 11/20/2024 10:52 AM EDT Inhaled Oxygen Concentration - - Weight 77.1 kg (170 lb) 11/20/2024 10:52 AM EDT Height 167.6 cm (5' 6 ) 11/20/2024 10:52 AM EDT Body Mass Index 27.44 11/20/2024 10:52 AM EDT Plan of Treatment Upcoming Encounters Date Type Department Care Team (Late st Contact Info) Description 12/18/2024 11:30 AM EST Office Visit Adult Medicine [address] [phone] Verena Morales PA [address] [place] [address] Health Maintenance Due Date Last Done Comments Breast Cancer Screening 1979 Colorectal Cancer Screening: Colonoscopy 1979 DTaP,Tdap,and Td Vaccines (1 - Tdap) 1998 Hepatitis B Vaccines (1 of 3 - 19+ 3-dose series) 1998 Cervical Cancer Screening: P ap Smear 2000 HPV Vaccines (1 - 3-dose SCD M series) 2006 HIV Screening 08/06/2024 Hepatitis C Screening 08/06/2024 COVID-19 Vaccine ( - 2023-2 5 season) 2024 Influenza Vaccine (#1) 2024 Social Influencers of Health Screening 08/13/2025 08/13/2024 RSV Immunization Adult Patie nts (1 - 1-dose 75+ series) 2054 Depression Screening Completed 08/13/2024 HIB Vaccines Aged Out No longer eligi [...] 5 Years) and At-Risk Patients (6 to 49 Years) Aged Out No longer eligi ble based on patient's age to complete this topic RSV Immunization Patients Un deshaun 20 months Aged Out No longer eligible b ased on patient's age to complete this topic Varicella Vaccines Aged Out No longer eligible based on patient's age to complete this topic Insurance [facility] Care Teams Scrubber Operator Relationship Specialty Start Date End Date Darin Bolivar MD [address] [place] [address] PCP - General Internal Medicine 08/05/24
== END 2024-11-28 09:05 | disposition home or self-care (01) ==
LOC: HO.HOS 08:18
PROVIDERS: Visit Provider Physical Medicine & Rehabilitation
DX: M54.2 Cervicalgia (principal); M79.18 Myalgia, other site; R20.0 Anesthesia of skin; M25.511 Pain in right shoulder
CPT/HCPCS: 99203

== ENCOUNTER 2024-11-28 08:18 | Outpatient (REF) | payer BC, SELFPAY ==
--- NOTE | ~2024-11-28 | XR_ITS ---
EXAMINATION: XR SHOULDER, RIGHT CLINICAL INFORMATION: M25.511 - Pain in right shoulder COMPARISON: None available. TECHNIQUE: 2 views of the right shoulder. FINDINGS: The bones and soft tissues are normal. No fracture. Glenohumeral and acromioclavicular alignment is anatomic with normal joint space. No abnormal soft tissue calcifications. XR/XR shoulder RT min 2V IMPRESSION: Normal right shoulder. Electronically signed by: Jami Miles MD 11/28/2024 09:18 AM EDT
== END 2024-11-28 08:19 | disposition home or self-care (01) ==
LOC: HO.HOSX 08:18
PROVIDERS: Visit Provider Physical Medicine & Rehabilitation
DX: M25.511 Pain in right shoulder (principal); M54.2 Cervicalgia; M79.18 Myalgia, other site; R20.0 Anesthesia of skin
CPT/HCPCS: 73030; 99202

== ENCOUNTER → 2024-11-28 09:10 | Outpatient (BNV) | payer BC, SELFPAY | PROVIDERS: Visit Provider Radiology Diagnostic Radiology | DX: M25.511 Pain in right shoulder (principal) | CPT/HCPCS: 73030 ==